=== PATIENT | female | born 1990 ===

== ENCOUNTER 2017-08-25 21:38 | Inpatient (IN) | payer OTHER ==
[2017-08-26 00:05] VITALS: BMI 25.4
[2017-08-26] MEDS ORDERED: Oxytocin 30 UNITS in Sodium Chloride 0.9% 500 ML IV ONE (00:43)
[2017-08-26 00:59] LABS: BASO # 0.1 K/uL (0.0-0.2); BASO % 0.7 % (0.0-2.0); EOS # 0.3 K/uL (0.0-0.7); EOS % 3.1 % (0.0-4.0); HEMOGLOBIN 11.9 g/dL (12.0-16.0); LYMPH # 2.4 K/uL (1.0-4.3); LYMPH % 21.6 % (20.0-40.0); MEAN CELL VOLUME 88.1 fl (81.0-99.0); MEAN CORPUSCULAR HEMOGLOBIN 29.1 pg (27.0-31.0); MEAN PLATELET VOLUME 10.2 fl (7.2-11.7); NEUT # 7.2 K/uL (1.8-7.0); NEUT % 65.6 % (50.0-75.0); RBC 4.08 Mil/uL (3.80-5.20); RED CELL DISTRIBUTION WIDTH 14.2 % (11.5-14.5); WHITE BLOOD COUNT 10.9 K/uL (4.8-10.8)
[2017-08-26] MEDS: Lactated Ringer's 1,000 ML IV SCH ×8 (02:19→21:30)
[2017-08-26] MEDS ORDERED: Fentanyl/Bupivacaine HCl 250 ML EPI ONE (03:08)
--- NOTE | 2017-08-26 08:38 | OBADHP ---
Datetime: 08/26/2017 00:27 Admit Comment, IP Provider: 27 yo at 39 weeks gestational age, corroborated by u/s at 8w3d, HALLE 09/01/17 presentred to [facility] with suspected rupture of membranes at about 8 pm. Reports good movement, denies vaginal bleeding, denies regular contractions, but says she has had some cramping x2 days. Denies outbreak with current of HSV Past OBGYNhx: ; 4 elective terminations via vacuum as per pt, all at 8 weeks GA, no hx of a bnormal PAP Past Med hx: HSV (genital herpes), asthma Past Surg hx: none Family hx: diabetes type 2 Social hx: denies tobacco, alcohol, drug use Meds: Valtrex 500 mg 1 tab daily, nebulizer as needed for asthma Allergies: dust, pollen care: Dr. Ziegler, [facility] labs: GBS neg (08/07/17) RPR NR (06/28/17) HIV neg (06/28/17) HbsAg neg (04/05/17) Rubella NONimmune ABO: O pos, antibody negative GC/CL neg (02/08/17) Gen: alert, oriented, appears nervous CV: S1S2, RRR Resp: normal effort, clear sounds Abd: gravid Ext: no significant edema Genitourinary: no herpetic lesions visualized SVE: 1cm, 70%, -3station SSE: clear mucus, minimal pooling, nitrazine positive Assessment: 27 yo at 39 weeks gestational age, with ruptured membranes. Plan: Admit to L_D and initiate labor protocol. Pt seen, examined and discussed with Dr. Christian [email or web address] OB attending addendum: Patient seen and examined by me with Dr. Camargo agree with assessment Pelvic Type - PN: Adequate Extremities - PN: Normal Abdomen - PN: Normal Back - PN: Normal Breast - PN: Not Done Lungs - PN: Normal Heart - PN: Normal Thyroid - PN: Not Done Neurologic - PN: Normal HEENT - PN: Normal General - PN: Normal FHR - Baseline A Provider: 150 Amniotic Fluid Color, Provider: Clear Membranes, Provider: Ruptured Nitrazine Provider: Positive IP Hx Assessment: The History has been Reviewed and is Current Vital Signs Provider: Reviewed; Within Normal Limits IP Chief Complaint: Suspected ruptured membranes NICHD Variability Prov Fetus A: Moderate 6-25bpm NICHD Accel Fetus A IP Provider: [id number] FHR Category Provider Fetus A: Category I NICHD Decel Fetus A IP Provider: None Dilatation, Provider: 1 Effacement, Provider: 70 Station, Provider: -3 Genitourinary Exam: Normal DTRs - PN: Not Done EGA AdmitDate IP: 39.1 IP Adm Impression: Term, intrauterine IP Admit Plan: Admit to unit Datetime: 08/25/2017 23:42 Presentation-Admit: Vertex Comments, ACOG Physical Exam: no herpetic lesions visualized on labia, perineum, or in/around introi tus SVE: 1cm, 70%, -3station SSE: clear mucus, minimal pooling, nitrazine positive
--- NOTE | 2017-08-26 13:08 | OBPN ---
Datetime: 08/26/2017 13:05 IP Progress Impression: Normal progression of labor IP Informed Consent Obtain: Vaginal Delivery IP Procedures: Sterile Vag Exam IP Progress Plan: Continue present management Contraction Comments Provider: q 2 mins FHR - Baseline A Provider: 150 IP Progress Note Comment: Patient evaluated, comfortable. VE=4-5/80/-1 Pitocin 12 mu/min Continue augmentation CEFM and TOCO NICHD Variability Prov Fetus A: Moderate 6-25bpm Dilatation, Provider: 4-5 Effacement, Provider: 80 Station, Provider: -1 NICHD Decel Fetus A IP Provider: None Datetime: 08/26/2017 00:27 Nitrazine Provider: Positive Membranes, Provider: Ruptured Amniotic Fluid Color, Provider: Clear Vital Signs Provider: Reviewed; Within Normal Limits NICHD Accel Fetus A IP Provider: 15X15 FHR Category Provider Fetus A: Category I Datetime: 08/25/2017 23:42 Presentation-Admit: Vertex
--- NOTE | 2017-08-26 17:38 | OBPN ---
Datetime: 08/26/2017 17:35 IP Informed Consent Obtain: Vaginal Delivery IP Procedures: Sterile Vag Exam IP Progress Plan: Continue present management Contraction Comments Provider: q 1-2 FHR - Baseline A Provider: 150 NICHD Variability Prov Fetus A: Moderate 6-25bpm Dilatation, Provider: 5-6 Effacement, Provider: 80 Station, Provider: 0 NICHD Decel Fetus A IP Provider: Early Datetime: 08/26/2017 15:45 IP Progress Impression: Normal progression of labor IP Progress Note Comment: Patient evaluated, comfortable VE=5-6/80/0 ZIC=747 mod emigdio, no accels, early decels TOCO = юлия q 1-2 mins Pit @ 6 mu/min A/P 1. Patient making small change. Continue Pitocin for induction 2. CEFM and TOCO 3. Re-evaluate as needed
--- NOTE | 2017-08-26 17:43 | OBPN ---
Datetime: 08/26/2017 17:35 IP Progress Note Comment: Patient evaluated, same exam. TCZ=131 mod emigdio, no accels, early decels cat -I tracing. Will continue to follow, continue Pitocin @ 12 mu/min. CEFm and TOCO
--- NOTE | 2017-08-26 19:10 | OBPN ---
Datetime: 08/26/2017 19:04 IP Progress Impression: Arrest of dilatation/descent IP Informed Consent Obtain: Vaginal Delivery IP Procedures: Sterile Vag Exam IP Progress Plan: Continue present management Contraction Comments Provider: q 1-2 mins FHR - Baseline A Provider: 150 IP Progress Note Comment: Patient evaluated, is unchanged. Patient at this point is an arrest of lab or. Patient advised to proceed to delivery via , discussed risks and benefits including risk of surgery, ancef to be given pre-operatively, scds bilaterally, will proceed to surgery when availa ble. Vital Signs Provider: Reviewed; Within Normal Limits NICHD Variability Prov Fetus A: Moderate 6-25bpm Dilatation, Provider: 5-6 Effacement, Provider: 80 Station, Provider: 0 NICHD Decel Fetus A IP Provider: Early
[2017-08-26] MEDS ORDERED: ceFAZolin IV 2 gm in Dextrose 2 GM/50 ML BAG IVPB ONE (19:30)
[2017-08-26] MEDS ORDERED: Lidocaine 2% PF (10 ml) Amp ONE (19:51)
[2017-08-26] MEDS ORDERED: Morphine 1 mg/ml preservative-free Inj(Duramorph) ONE (20:03)
[2017-08-26] MEDS ORDERED: Propofol 10 mg/ml Inj (20 ML) ONE (20:48)
[2017-08-26] MEDS ORDERED: Oxycodone/Acetaminophen 5/325 mg Tab PO PRN (21:04)
[2017-08-26] MEDS ORDERED: DiphenhydrAMINE 50 mg/ml Inj IVP PRN (21:05)
--- NOTE | 2017-08-26 21:06 | OBDS ---
MATERNAL INFORMATION Provider Comments: Surgeon: Dr. Garnica Top Bottom Attaching Machine Operator: Dr. Doyle Pre-op Dx: arrest of labor Surgery: LTCS Post-op: Same Findings: Live female infant, 7lbs 6oz, 9/9, cephalic, clear fluid, grossly nml tubes, ovaries, ut erues Anesthesia: Spinal by Dr. Shanks UO: 200mL Total input: 1800mL EBL: 800mL Condition: stable Pathology: cord blood LABOR SUMMARY EDC: 09/01/2017 00:00 No. Babies in Womb: 0 MEMBRANES Membranes Rupture Method: Spontaneous Rupture of Membranes: 08/25/2017 20:00 Amniotic Fluid Color: Clear Amniotic Fluid Amount: Moderate Amniotic Fluid Odor: None
[2017-08-26 22:39] LABS: HEMOGLOBIN 9.3 g/dL (12.0-16.0); MEAN CELL VOLUME 87.2 fl (81.0-99.0); MEAN CORPUSCULAR HEMOGLOBIN 29.6 pg (27.0-31.0); MEAN CORPUSCULAR HGB CONC 33.9 g/dL (33.0-37.0); RBC 3.14 Mil/uL (3.80-5.20); RED CELL DISTRIBUTION WIDTH 14.4 % (11.5-14.5); WHITE BLOOD COUNT 14.5 K/uL (4.8-10.8)
[2017-08-27 02:45] LABS: BASO # 0.1 K/uL (0.0-0.2); BASO % 0.6 % (0.0-2.0); EOS % 0.1 % (0.0-4.0); HEMOGLOBIN 7.9 g/dL (12.0-16.0); LYMPH # 1.5 K/uL (1.0-4.3); LYMPH % 8.1 % (20.0-40.0); MEAN CELL VOLUME 88.6 fl (81.0-99.0); MEAN CORPUSCULAR HEMOGLOBIN 28.8 pg (27.0-31.0); MEAN CORPUSCULAR HGB CONC 32.5 g/dL (33.0-37.0); MEAN PLATELET VOLUME 9.1 fl (7.2-11.7); MONO % 5.4 % (0.0-10.0); NEUT # 15.3 K/uL (1.8-7.0); NEUT % 85.8 % (50.0-75.0); PLATELET COUNT 154 K/uL (130-400); RBC 2.73 Mil/uL (3.80-5.20); RED CELL DISTRIBUTION WIDTH 14.3 % (11.5-14.5); WHITE BLOOD COUNT 17.9 K/uL (4.8-10.8)
[2017-08-27 02:59] LABS: ALB/GLOB RATIO 0.8 (1.0-2.1); ALT/SGPT 26 U/L (9-52); AST/SGOT 25 U/L (14-36); BLOOD UREA NITROGEN 7 mg/dl (7-17); CALCIUM 7.9 mg/dL (8.4-10.2); GFR AFRICAN-AMERICAN > 60; GFR NON-AFRICAN AMERICAN > 60
[2017-08-27 03:51] LABS: BANDS 4 % (0-2); EOSINOPHIL 1 % (0-7); LYMPHOCYTE 7 % (20-50); MONOCYTE 4 % (0-10); NEUTROPHIL 84 % (42-75); PLATELET ESTIMATE NORMAL (NORMAL); TOTAL CELLS COUNTED 100
[2017-08-27 03:52] LABS: HYPOCHROMIC SLIGHT
[2017-08-27 03:54] LABS: SPHEROCYTES SLIGHT
--- NOTE | 2017-08-27 04:32 | OP ---
PROCEDURE DATE: 08/26/2017 PREOPERATIVE DIAGNOSIS: Arrest of labor. POSTOPERATIVE DIAGNOSIS: Arrest of labor. PROCEDURE: Low transverse section. SURGEON: Luba Garnica MD BOAT FINISHER: . FINDINGS: Live female infant, cephalic presentation, clear fluid, and grossly normal tubes, ovaries, , uterus. ESTIMATED BLOOD LOSS: 800 mL. URINE OUTPUT: 300 mL TOTAL FLUID INPUT: 1800 mL. TYPE OF ANESTHESIA: Spinal. ANESTHESIA ADMINISTERED BY: Dr. Shanks COMPLICATIONS: None. CONDITION: Stable. PATHOLOGY SPECIMEN: Cord blood. INDICATION: This is a 27-year-old G1, P0 at term, presents to Labor and Delivery, ruptured and progressed to 6 cm where despite Pitocin after 4 hours, no change from 6 cm. The patient advised that at this point she was with arrest of labor and she proceeded with for delivery. The patient verbalized understanding and agreed to plan. Signed informed consent. She was advised the risks of surgery including risks of bleeding, infection, damage to surrounding organs such as bowel, bladder, ureter, and uterus. The patient verbalized understanding and was taken to the OR. DESCRIPTION OF PROCEDURE: Ancef was given preoperatively. SCDs were placed bilaterally. The patient was prepped and draped in a normal sterile fashion in dorsal supine position with a leftward tilt. A Pfannenstiel skin incision was made with a scalpel and carried through to the underlying layer of fascia with the scalpel and the Bovie. The fascia was incised in the midline. The incision was extended laterally with the Bovie. The fascia was tented up at the midline with Jhonathan clamps and dissected off underlying pyramidalis muscles with the Bovie. In a similar fashion, we tented up the superior aspect of this incision, which we dissected off the underlying rectus abdominis muscles with the Bovie. We the muscles bluntly at the midline. The peritoneum identified, entered bluntly, and the incision was extended superiorly and inferiorly with good visualization of all underlying organs. The bladder blade was inserted. The vesicouterine peritoneum was identified, grabbed with pickups, and dissected off of the underlying lower uterine segment with the Metzenbaum scissors. We dissected the uterus in a transverse fashion and to the uterine cavity and extended the incision manually. The was delivered in cephalic presentation atraumatically followed by shoulder and rest of the atraumatically. Cord was clamped and cut. Mouth and nares were suctioned. Infant was handed off to the awaiting airplane cabin attendant. Placenta was extracted. Uterus was exteriorized, cleared off all blood. Uterine incision was repaired with an 0 Vicryl stitch and the second imbricating incision stitch was used with 0 Monocryl stitch. The hysterotomy site appeared to be hemostatic. Uterus was returned to the abdomen, gutters were cleared off all clots. The peritoneum was closed with 2-0 Monocryl and the muscle was reapproximated with the same stitch. The fascia was closed with a 0 Vicryl and the subcutaneous fat was reapproximated with plain gut suture. The skin was closed with 4-0 Monocryl. Sponge, lap, and needle counts were correct x4. The patient was taken to the recovery room in stable condition. No other complications. Luba Garnica MD
[2017-08-27] MEDS: Lactated Ringer's 1,000 ML IV SCH (05:30)
[2017-08-27] MEDS ORDERED: Iohexol 240 (50 ml) PO ONE ×2 (09:15)
[2017-08-27] MEDS: Oxycodone/Acetaminophen 5/325 mg Tab PO PRN ×2 (09:28→14:24)
[2017-08-27] MEDS: Simethicone 80 mg Chewtab PO SCH ×3 (10:00→21:41)
[2017-08-27] MEDS ORDERED: Sodium Chloride 0.9% 1,000 ML IV SCH (10:15)
[2017-08-27] MEDS ORDERED: Iohexol 300 50 ML ONE (14:22)
[2017-08-27] MEDS ORDERED: Sodium Chloride 0.9% 50 ML IV ONE (14:24)
--- NOTE | 2017-08-27 15:52 | CT ---
PROCEDURE: CT Abdomen and Pelvis with contrast HISTORY: S/P decreased urine output COMPARISON: None. TECHNIQUE: Contrast dose: 95 cc of Omnipaque 300. Axial and reformatted coronal and sagittal CT images of the abdomen and pelvis were obtained after IV and oral contrast administration. Radiation dose: Total exam DLP = 689.81 mGy-cm. This CT exam was performed using one or more of the following dose reduction techniques: Automated exposure control, adjustment of the mA and/or kV according to patient size, and/or use of iterative reconstruction technique. FINDINGS: LOWER THORAX: Trace bilateral pleural effusions are noted slightly larger on the left. No evidence of consolidation in the visualized portion of the lungs. The heart is normal in size. LIVER: Unremarkable. No gross lesion or ductal dilatation. GALLBLADDER AND BILE DUCTS: Unremarkable. PANCREAS: Unremarkable. No gross lesion or ductal dilatation. SPLEEN: Unremarkable. ADRENALS: Unremarkable. No mass. KIDNEYS AND URETERS: There is mild bilateral hydronephrosis and hydroureter without evidence of obstructing stone likely due to compression on the distal ureters by enlarged uterus. VASCULATURE: Unremarkable. No aortic aneurysm. BOWEL: Unremarkable. No obstruction. No gross mural thickening. APPENDIX: Normal appendix. PERITONEUM: There is small amount of free fluid and free air in the abdomen and pelvis likely represent post surgical changes. LYMPH NODES: Unremarkable. No enlarged lymph nodes. BLADDER: Kang catheter is noted in the urinary bladder which is displaced anteriorly by enlarged uterus. REPRODUCTIVE: The uterus is markedly enlarged consistent with the patient's status. There is a moderate to large amount of fluid and heterogeneous densities in the endometrial cavity noted. BONES: No acute fracture. OTHER FINDINGS: Postsurgical changes including foci of air noted in the anterior abdominal and pelvic wall. IMPRESSION: Mild bilateral hydronephrosis and hydroureter likely due to compression on the distal ureters by enlarged uterus. No evidence of obstructing stone. Enlarged uterus. Moderate amount of fluid and heterogeneous density noted in the endometrial cavity. Postsurgical changes consistent with the patient's recent .
[2017-08-27 23:10] LABS: HEMOGLOBIN 8.6 g/dL (12.0-16.0); MEAN CORPUSCULAR HGB CONC 32.9 g/dL (33.0-37.0); RBC 2.96 Mil/uL (3.80-5.20); WHITE BLOOD COUNT 17.8 K/uL (4.8-10.8)
[2017-08-28] MEDS: Simethicone 80 mg Chewtab PO SCH ×4 (04:01→22:10)
--- NOTE | 2017-08-28 06:44 | CP.PCM.CON ---
History of Present Illness - History of Present Illness History of Present Illness: General Surgery Consult Note - Dr. Gramajo 27 y/o female seen at bedside this morning 1 day s/p . Pt admits to mild soreness in her stomach and overall weakness. She states that yesterday she was not able to urinate but that today she has been able to. She admits to having cramping the two days prior to her . Denies noting any vaginal bleeding or discharge. Denies F/C/N/V/CP/SOB. Denies headache or any changes in vision. She admits to four terminated pregnancies in the past and denies any complications. Surgery consulted for evaluation of oliguria with hypotension. PMHx: HSV (genital), asthma PSHx: denies SocHx: denies EtOH, cigarette or illicit drug use FamHx: hx of DM type 2 Review of Systems - Review of Systems All systems: reviewed and no additional remarkable complaints except (per HPI) Past Patient History - Past Social History Smoking Status: Never Smoked Meds Allergies/Adverse Reactions: Allergies Allergy/AdvReac Type Severity Reaction Status Date / Time pollen extracts Allergy CONGESTION Verified 08/26/17 00:07 - Medications Medications: Current Medications Diphenhydramine HCl (Benadryl) 50 mg IVP Q6 PRN PRN Reason: Itching / Pruritus Docusate Sodium (Colace) 100 mg PO BID [facility] Last Admin: 08/27/17 16:34 Dose: 100 mg Hydromorphone HCl (Dilaudid) 0.5 mg IVP Q15MIN PRN PRN Reason: Pain, severe (8-10) Sodium Chloride (Sodium Chloride 0.9%) 1,000 mls @ 125 drops/hr IV .Q24H [facility] Stop: 08/28/17 10:12 Ibuprofen (Motrin Tab) 600 mg PO Q6 PRN PRN Reason: Pain, Mild (1-3) Last Admin: 08/28/17 04:01 Dose: 600 mg Ketorolac Tromethamine (Toradol) 30 mg IVP Q6 PRN PRN Reason: For PCEA Breakthrough Pain Oxycodone/Acetaminophen (Percocet 5/325 Mg Tab) 1 tab PO Q4 PRN PRN Reason: Pain, moderate (4-7) Stop: 08/29/17 21:05 Last Admin: 08/27/17 14:24 Dose: 1 tab Oxycodone/Acetaminophen (Percocet 5/325 Mg Tab) 2 tab PO Q4 PRN PRN Reason: Pain, severe (8-10) Stop: 08/29/17 21:05 Simethicone (Mylicon Chew Tab) 80 mg PO Q6 [facility] Last Admin: 08/28/17 04:01 Dose: 80 mg Physical Exam - Constitutional Appears: Non-toxic, No Acute Distress Additional comments: mild pallor noted to face, overall appears slightly weak - Eye Exam Eye Exam: Normal appearance - GI/Abdominal Exam GI & Abdominal Exam: Tenderness Additional comments: mild tenderness noted to lower abdomen - Neurological Exam Neurological exam: Alert, Oriented x3 - Psychiatric Exam Psychiatric exam: Normal Affect, Normal Mood - Skin Skin Exam: Dry, Pallor Additional comments: mild pallor noted to face Results - Vital Signs Recent Vital Signs: Last Vital Signs Temp 98.3 F 08/26/17 01:36 Pulse 61 08/26/17 01:36 Resp 18 08/26/17 01:36 BP 90/51 L 08/26/17 01:36 Pulse Ox 99 08/26/17 01:36 - Labs Result Diagrams: 08/27/17 23:05 08/27/17 02:41 Labs: Laboratory Results - last 24 hr 08/26/17 08/27/17 00:52 23:05 WBC 17.8 H RBC 2.96 L Hgb 8.6 L Hct 26.0 L MCV 88.0 MCH 29.0 MCHC 32.9 L RDW 14.0 Plt Count 142 Blood Type O POSITIVE Antibody Screen Negative Crossmatch See Detail BBK History Checked No verified bt Assessment & Plan - Assessment and Plan (Free Text) Assessment: 27 y/o female 1 day s/p with 1) anemia, 2) hypotension and 3) transient oliguria Plan: -Pt not hypotensive on exam -pt making urine well at present -no signs of active bleeding -will F/U CT abd/pelvis -pt will be transfused as needed per OB team Discussed plan with Dr. Gramajo - Date & Time Date: 08/27/17 Time: 10:00
--- NOTE | 2017-08-28 07:11 | CP.PCM.PN ---
Subjective - Date & Time of Evaluation Date of Evaluation: 08/28/17 Time of Evaluation: 07:09 - Subjective Subjective: Gen Sx: Dr Gramajo Pt S&E. s/p 2 units pRBC. Pt BP has been stable 90-110 systolic. No tachycardia. Continues to make adequate urine. Reports she still feels weak but improved from yesterday. Objective - Vital Signs/Intake and Output Vital Signs (last 24 hours): Temp Pulse Resp BP Pulse Ox 98.3 F 61 18 90/51 L 99 08/26/17 01:36 08/26/17 01:36 08/26/17 01:36 08/26/17 01:36 08/26/17 01:36 - Medications Medications: Current Medications Diphenhydramine HCl (Benadryl) 50 mg IVP Q6 PRN PRN Reason: Itching / Pruritus Docusate Sodium (Colace) 100 mg PO BID [facility] Last Admin: 08/27/17 16:34 Dose: 100 mg Hydromorphone HCl (Dilaudid) 0.5 mg IVP Q15MIN PRN PRN Reason: Pain, severe (8-10) Sodium Chloride (Sodium Chloride 0.9%) 1,000 mls @ 125 drops/hr IV .Q24H [facility] Stop: 08/28/17 10:12 Ibuprofen (Motrin Tab) 600 mg PO Q6 PRN PRN Reason: Pain, Mild (1-3) Last Admin: 08/28/17 04:01 Dose: 600 mg Ketorolac Tromethamine (Toradol) 30 mg IVP Q6 PRN PRN Reason: For PCEA Breakthrough Pain Oxycodone/Acetaminophen (Percocet 5/325 Mg Tab) 1 tab PO Q4 PRN PRN Reason: Pain, moderate (4-7) Stop: 08/29/17 21:05 Last Admin: 08/27/17 14:24 Dose: 1 tab Oxycodone/Acetaminophen (Percocet 5/325 Mg Tab) 2 tab PO Q4 PRN PRN Reason: Pain, severe (8-10) Stop: 08/29/17 21:05 Simethicone (Mylicon Chew Tab) 80 mg PO Q6 [facility] Last Admin: 08/28/17 04:01 Dose: 80 mg - Labs Labs: 08/27/17 23:05 08/27/17 02:41 - Constitutional Appears: Non-toxic - Respiratory Exam Respiratory Exam: absent: Accessory Muscle Use, Respiratory Distress - Cardiovascular Exam Cardiovascular Exam: absent: Tachycardia - GI/Abdominal Exam GI & Abdominal Exam: Soft, Tenderness (post-surgical). absent: Distended, Firm - Neurological Exam Neurological Exam: Alert, Awake - Psychiatric Exam Psychiatric exam: Normal Affect, Normal Mood Assessment and Plan - Assessment and Plan (Free Text) Assessment: 27F w/ hypovolemia s/p Plan: s/p 2 units pRBC - trend wbc hemodynamically stable no plans for surgical intervention further mgmt per OB team d/w Dr Rox Ramirez, PGY3
--- NOTE | 2017-08-28 10:09 | OBPPN ---
Datetime: 08/28/2017 10:06 PP Pain Prov: Within normal limits PP Nausea Prov: Denies PP Flatus Prov: Yes PP Breasts Prov: Not Done PP Heart Prov: Normal PP Lungs Prov: Normal PP Abdomen/Uterus Prov: Normal PP Lochia Prov: Not Done PP Vulva/Perineum Prov: Not Done PP CVA Tenderness Prov: Normal PP Extremities Prov: Normal PP C/S Incision Prov: Normal PP Impression Prov: Normal progression PP Plan Prov: Continue present management PP Progress Note Prov: Patient doing well ambulating tolerating diet and pain well controlled Vital signs stable afebrile Uterus firm below the umbilicus Incision clean dry and intact Extremities no Homans Postoperative day #2 Encourage ambulation, regular diet, analgesia as needed, anticipate discharge in a.m. Vital Signs Provider PP: Reviewed Datetime: 08/27/2017 10:13 PP BM Prov: No PP Progress Prov: Normal
[2017-08-29] MEDS: Simethicone 80 mg Chewtab PO SCH ×2 (03:43→10:00)
[2017-08-29] MEDS: Oxycodone/Acetaminophen 5/325 mg Tab PO PRN (08:05)
[2017-08-29 18:20] VITALS: BP 112/69; PULSE 85; RESP 19; TEMP 98.2; O2SAT 98
== END 2017-08-29 12:30 | disposition home or self-care (01) | DRG 766 ==
LOC: H.EROB2 21:38 → H.L&D 08-26 00:07 → H.OB/GYN 08-27 08:00
PROVIDERS: ADMIT Obstetrics & Gynecology; ATTEND Obstetrics & Gynecology
PROC: 10D00Z1 Extraction of Products of Conception, Low, Open Approach (ICD-10-PCS; principal; 2017-08-26)
PROC: 4A1HXCZ Monitoring of Products of Conception, Cardiac Rate, External Approach (ICD-10-PCS; 2017-08-26)
DX: O62.0 Primary inadequate contractions (principal); E86.1 Hypovolemia; Z37.0 Single live birth; Z3A.39 39 weeks gestation of pregnancy; O99.52 Diseases of the respiratory system complicating childbirth; J45.909 Unspecified asthma, uncomplicated